=== PATIENT | female | born 1995 | race Caucasian/White ===

== ENCOUNTER 2022-01-28 17:13 | Emergency (ER) | payer SELFPAY ==
[~2022-01-28] VITALS: Ht 162.6 cm; Wt 72.6 kg
[2022-01-28] MEDS ORDERED: LIDOCAINE/EPI 1% 1:100000 20 ML VIAL INJ ONE (17:30)
[2022-01-28] MEDS ORDERED: BACITRACIN 1 GM OINT TP ONE (17:52)
[2022-01-28 19:09] LABS: BARBITURATE, URINE NEGATIVE (NEG <=200); BENZODIAZEPINE, URINE NEGATIVE (NEG <=150); CANNABINOID, URINE NEGATIVE (NEG <=50); COCAINE, URINE POSITIVE (NEG <=150); METHAMPHETAMINES SCREEN,URINE POSITIVE (NEG <=500); OPIATE, URINE NEGATIVE (NEG <=100); PHENCYCLIDINE SCREEN,URINE NEGATIVE (NEG <=25); UR TRICYCLIC ANTIDEPRESSANTS NEGATIVE (NEG <=300); URINE AMPHETAMINE NEGATIVE (NEG <=500); URINE METHADONE NEGATIVE (NEG <=200); URINE OXYCODONE SCREEN NEGATIVE (NEG <=100); URINE PROPOXYPHENE SCREEN NEGATIVE (NEG <=300)
[2022-01-28 19:50] VITALS: BP_SYST 112
== END 2022-01-28 19:50 | disposition home or self-care (01) ==
LOC: SED 17:13
DX: S01.81XA Laceration without foreign body of other part of head, initial encounter (principal); F14.129 Cocaine abuse with intoxication, unspecified; F15.929 Other stimulant use, unspecified with intoxication, unspecified; Z79.899 Other long term (current) drug therapy; W01.198A Fall on same level from slipping, tripping and stumbling with subsequent striking against other object, initial encounter; Y93.89 Activity, other specified; Y92.89 Other specified places as the place of occurrence of the external cause; Y99.8 Other external cause status
CPT/HCPCS: 70450-TC; 76376; 80307; 99284